=== PATIENT | female | born 1990 | race Caucasian/White ===

== ENCOUNTER 2018-01-01 20:17 | Emergency (ER) | END 2018-01-01 22:30 | disposition home or self-care (01) ==

== ENCOUNTER 2018-05-26 10:54 | Inpatient (IN) | END 2018-05-28 15:09 | disposition home or self-care (01) | DRG 775 ==

== ENCOUNTER 2019-03-19 00:50 | Emergency (ER) | payer OTHER ==
[~2019-03-19] VITALS: Ht 165.1 cm; Wt 67.4 kg
[~2019-03-19 00:50] MED LIST: ACET500C5 PO
[2019-03-19 00:58] VITALS: BP 117/66; PULSE 122; RESP 20; Ht 165.1 cm; Wt 67.4 kg
[2019-03-19] MEDS ORDERED: ACETAMINOPHEN 500 MG TAB PO STA (02:08)
[2019-03-19] MEDS ORDERED: KETOROLAC 30 MG INJ IM STA (02:08)
[2019-03-19] MEDS ORDERED: D-ME473S2 PO (02:29)
[2019-03-19] MEDS ORDERED: IBUP-1542 PO (02:29)
--- NOTE | 2019-03-19 02:32 | ERD ---
ER Documentation Chief Complaint Chief Complaint fever/body aches/sore throat x 1 day HPI 28-year-old female presents with fever and cough and body aches for the last day. She has vomiting, abdominal pain, chest pain, additional complaints. ROS All systems reviewed and are negative except as per history of present illness. Medications Home Meds Active Scripts Dextromethorphan Hb-Promethazine Hcl* (Promethazine DM* Syrup) 473 Ml Syrup, 5 ML PO Q6 PRN for COUGH for 5 Days, ML Prov:VERO WARREN MD 03/19/19 Ibuprofen* (Motrin*) 600 Mg Tab, 600 MG PO Q6, #15 TAB Prov:VERO WARREN MD 03/19/19 Acetaminophen* (Tylophen*) 500 Mg Capsule, 1 CAP PO Q6H PRN for PAIN AND OR ELEVATED TEMP, #20 CAP Prov:CINTHIA MORALES MD 01/01/18 Allergies Allergies: Coded Allergies: No Known Allergy (Unverified , 03/19/19) PMhx/Soc Medical and Surgical Hx: pt denies Medical Hx, pt denies Surgical Hx Hx Alcohol Use: No Hx Substance Use: No Hx Tobacco Use: No FmHx Family History: No diabetes, No coronary disease, No other Physical Exam Vitals Vital Signs Date Temp Pulse Resp B/P (MAP) Pulse Ox O2 O2 Flow FiO2 Time Delivery Rate 03/19/19 100.1 122 20 117/66 97 00:58 (83) Physical Exam Const: No acute distress Head: Atraumatic Eyes: Normal Conjunctiva ENT: Normal External Ears, Nose and Mouth. TMs and oropharynx normal. Neck: Full range of motion. No meningismus. Resp: Clear to auscultation bilaterally dry cough without rales, wheezing or retractions. Cardio: Regular rate and rhythm, no murmurs Abd: Soft, non tender, non distended. Normal bowel sounds Skin: No petechiae or rashes Back: No midline or flank tenderness Ext: No cyanosis, or edema Neur: Awake and alert Psych: Normal Mood and Affect Results 24 hrs Laboratory Tests Test 03/19/19 02:30 POC Beta HCG, Qualitative NEGATIVE Current Medications Medications Dose Sig/Sharmila Start Time Status Last (Trade) Ordered Route PRN Stop Time Admin Dose Reason Admin Ketorolac 30 mg ONCE STAT 03/19/19 DC 03/19/19 Tromethamine IM 02:08 03/19/19 02:49 (Toradol) 02:09 500 mg ONCE STAT 03/19/19 DC Acetaminophen PO 02:08 03/19/19 (Tylenol 02:09 Tab) Procedures/MDM Patient presents with sore throat, ear pain and URI symptoms for last day. She has no signs of pharyngitis, pneumonia, hypoxemia, rest or distress, abdominal pain, additional concerning signs or symptoms. She has signs and symptoms of an acute viral URI and will be treated with fever control, Promethazine DM, primary care follow-up and return precaution. She is given Tylenol and Toradol prior to discharge. hCG negative. The patient was stable with no new complaints during the ER course. Clinically, there is no current evidence to suggest meningitis, sepsis, acute abdomen, pneumonia, stroke, acute coronary syndrome, pulmonary embolism, aortic dissection or any other emergent condition appearing to require further evaluation or hospitalization. Patient counseled regarding my diagnostic impression and care plan. Prior to discharge all questions answered. Pt agrees with treatment plan and understands strict return precautions. Pt is instructed to follow up with primary care provider within 24-48 hours. Precautionary instructions provided including instructions to return to the ER if not improving or for any worsening or changing symptoms or concerns. Disclaimer: Inadvertent spelling and grammatical errors are likely due to EHR/dictation software use and do not reflect on the overall quality of patient care. Also, please note that the electronic time recorded on this note does not necessarily reflect the actual time of the patient encounter. Departure Diagnosis: Primary Impression: URI, acute Additional Impression: Sore throat Condition: Stable Patient Instructions: Fever Control (Adult), Uri, Viral, No Abx (Adult) Referrals: NO PRIMARY,CARE PHYSICIAN (PCP) Additional Instructions: Probablamente un virus que dura 2-4 arciniega. cheque otro vez en el proximo edilberto para mas simptomas- vomito, dolor, nayana, problemas con respirando, o con jo doctor primario. VERO WARREN MD Mar 19, 2019 02:32
== END 2019-03-19 03:20 | disposition home or self-care (01) ==
LOC: FTE 00:50
DX: J06.9 Acute upper respiratory infection, unspecified (principal); J02.9 Acute pharyngitis, unspecified
CPT/HCPCS: 81025; 96372; J1885; Z7502; Z7610

== ENCOUNTER → 2019-05-06 | Emergency (ER) | payer OTHER ==
[~2019-05-06] VITALS: Ht 154.9 cm; Wt 68.2 kg
[~2019-05-06] MED LIST changes: +ACET325T33 PO; +D-ME473S2 PO; +IBUP-1542 PO; +PREN-93 PO
[2019-05-06 00:50] VITALS: BP 129/63; PULSE 95; RESP 18; Ht 154.9 cm; Wt 68.2 kg
--- NOTE | 2019-05-06 02:11 | ERD ---
ER Documentation Chief Complaint Chief Complaint still bleeding vaginally but of lesser amount since last ED visit HPI History of Present Illness: 28-year-old female who denies a past medical history coming in today due to complaint of vaginal bleeding. Patient was seen on 05/04/2019 at [facility] emergency department for the same complaint. Patient reports coming back to emergency department because she believes that a heart rate should have been found on exam at this length of . Patient reports that bleeding has decreased and she has soaked 1 pad during the past day. Patient reports that abdominal pain is decreased, only mild cramping. Denies any other associated symptoms including genitourinary symptoms. At home pharmacological/nonpharmacological treatment for symptoms: Denies Denies social concerns; Denies recent foreign travel ROS All systems reviewed and are negative except as per history of present illness. Medications Home Meds Active Scripts Acetaminophen* (Tylenol*) 325 Mg Tablet, 1 TAB PO Q6 PRN for PAIN AND OR ELEVATED TEMP, #20 TAB Prov:ALVAREZ WILKINS PA-C 05/05/19 Vit No.124/Iron/FA ( Vitamin Tablet) 1 Each Tablet, 1 EACH PO DAILY, #30 TAB Prov:ALVAREZ WILKINS PA-C 05/05/19 Dextromethorphan Hb-Promethazine Hcl* (Promethazine DM* Syrup) 473 Ml Syrup, 5 ML PO Q6 PRN for COUGH for 5 Days, ML Prov:VERO WARREN MD 03/19/19 Ibuprofen* (Motrin*) 600 Mg Tab, 600 MG PO Q6, #15 TAB Prov:VERO WARREN MD 03/19/19 Acetaminophen* (Tylophen*) 500 Mg Capsule, 1 CAP PO Q6H PRN for PAIN AND OR ELEVATED TEMP, #20 CAP Prov:CINTHIA MORALES MD 01/01/18 Allergies Allergies: Coded Allergies: No Known Allergy (Unverified , 03/19/19) PMhx/Soc Medical and Surgical Hx: pt denies Medical Hx, pt denies Surgical Hx Hx Alcohol Use: No Hx Substance Use: No Hx Tobacco Use: No Smoking Status: Never smoker FmHx Family History: No diabetes, No coronary disease Physical Exam Vitals Vital Signs Date Temp Pulse Resp B/P (MAP) Pulse Ox O2 O2 Flow FiO2 Time Delivery Rate 05/06/19 98.5 95 18 129/63 98 00:50 (85) Physical Exam Const: No acute distress, afebrile Head: Atraumatic Eyes: Normal Conjunctiva ENT: Normal External Ears, Nose and Mouth. Neck: Full range of motion. No meningismus. Resp: Clear to auscultation bilaterally Cardio: Regular rate and rhythm, no murmurs Abd: Soft, non tender, non distended. No guarding, no masses, no rigidity Skin: No petechiae or rashes Back: No midline or flank tenderness Ext: No cyanosis, or edema Neur: Awake and alert x3, speaking in clear sentences, no focal deficits or facial asymmetry Psych: Normal Mood and Affect Results 24 hrs Laboratory Tests Test 05/06/19 01:46 Bedside Urine pH (LAB) 7.0 Bedside Urine Protein (LAB) Negative Bedside Urine Glucose (UA) Negative Bedside Urine Ketones (LAB) Negative Bedside Urine Blood 2+ Bedside Urine Nitrite (LAB) Negative Bedside Urine Leukocyte Esterase (L Negative Procedures/MDM ED COURSE: ED course includes a thorough examination and history. The patient was stable throughout ED course. I kept the patient and/or family informed of laboratory and diagnostic imaging results throughout the ED course. LABS: Urinalysis negative for infection, hemoglobin noted MEDICAL DECISION MAKING: Low suspicion for life-threatening medical emergency. Low suspicion for [employer] emergency that requires hospitalization or immediate surgical intervention. Otherwise healthy patient presenting with constellation of symptoms likely representing vaginal bleeding during , subchorionic hemorrhage, threatened miscarriage as characterized by history, physical exam findings, lab findings. No clinical indication for repeat blood work as well as ultrasound at this time. IT Is only been less than 36 hours since patient's last ED visit and no significant changes have been noted. Low suspicion for hemorrhage. Low suspicion for infectious process. Patient reassessment @ 0146: Results discussed. Encouraged to follow-up with [employer] next week for repeat labs and ultrasound if indicated. Return precautions given for hemorrhage. Patient hemodynamically stable. No respiratory distress, otherwise relatively well appearing and nontoxic. Disposition given. Patient educated on diagnoses, prescriptions, follow-up care, return precautions. Strict return precautions given for worsening condition; questions answered discharge. Patient verbalizes understanding of discharge instructions. PRESCRIPTIONS FOR HOME: None DISPOSITION: DISCHARGE At this time, patient is stable for discharge and outpatient management. I have instructed the patient to follow-up with his/her primary care physician in 1-2 days. I have discussed with the patient the possibility of needing to see a specialist for further workup and imaging studies if symptoms persist. I have instructed the patient to promptly return to the ER for any new or worsening symptoms including increased pain, fever, nausea, vomiting, weakness or LOC. The patient and/or family expressed understanding of and agreement with this plan. All questions were answered. Home care instructions were provided. DISCLAIMER: Inadvertent spelling and grammatical errors are likely due to EHR/dictation software use and do not reflect on the overall quality of patient care. Also, please note that the electronic time recorded on this note does not necessarily reflect the actual time of the patient encounter. Departure Diagnosis: Primary Impression: Vaginal bleeding in patient at less than 20 weeks ges... Additional Impression: Threatened miscarriage Condition: Stable Patient Instructions: Bleeding During Early Additional Instructions: Google Translate utilizado para la traduccin de las siguientes lneas, por favor, disculpe los errores. Muchas marcie por permitirnos participar en morrison cuidado. Morrison nicole y seguridad es nuestra principal prioridad en [facility]. Es importante leer todas las instrucciones de delroy y la educacin que se proporcionan en morrison paquete de delroy. * Los signos de hemorragia por hemorragia vaginal incluyen empapar 1 almohadilla por hora nissa al menos 2 horas; Esta es yeison emergencia mdica que pone en peligro morrison rodrigo y necesita regresar a la wayne de emergencias. * * Consulte a morrison obstetra / gineclogo la prxima semana para repetir el anlisis de nayana y para repetir el ultrasonido. * Llame a morrison mdico de atencin primaria MAANA para yeison dulce nissa los prximos 2 a 4 stevens y lleve toda la informacin y los medicamentos recetados. Llene las recetas y siga exactamente las instrucciones de la etiqueta. Si los sntomas empeoran y morrison proveedor no est disponible, regrese inmed iatamente al Departamento de Emergencias. ----- Google Translate used for translation of following lines, please excuse errors. Thank you very much for allowing us to participate in your care. Your health and safety is our top priority at [facility]. It is important to read all discharge instructions and education provided in your discharge packet. *Signs of vaginal bleeding hemorrhage include soaking 1 pad per hour for at least 2 hours; this is a life-threatening medical emergency and you need to return to emergency department.* *See your [employer] next week for repeat blood work as well as possible repeat ultr asound.* Call your primary care doctor TOMORROW for an appointment during the next 2-4 days and bring all the information and medications prescribed. Have prescriptions filled and follow precisely the directions on the label. If the symptoms get worse and your provider is unavailable, return to the Emergency Department immediately. LUZ TONEY NP May 06, 2019 02:11
== END | disposition home or self-care (01) ==
LOC: FTE 00:43
DX: O20.0 Threatened abortion (principal); Z3A.01 Less than 8 weeks gestation of pregnancy
CPT/HCPCS: 81003; Z7502; 99282